=== PATIENT | female | born 2005 ===

== ENCOUNTER 2023-02-17 11:44 | Emergency (ER) | payer SELFPAY ==
[~2023-02-17] VITALS: Ht 157.4 cm; Wt 72.0 kg
[2023-02-17 14:13] LABS: BILIRUBIN,URINE NEGATIVE (NEGATIVE); CLARITY,URINE CLEAR; COLOR,URINE YELLOW; GLUCOSE, URINE (UA) NEGATIVE (NEGATIVE); KETONES,URINE NEGATIVE (NEGATIVE); NITRITE,URINE NEGATIVE (NEGATIVE); PROTEIN,URINE TRACE (NEGATIVE)
[2023-02-17 14:14] LABS: BACTERIA,URINE NEGATIVE /HPF; LEUKOCYTE ESTERASE ,URINE 1+ (NEGATIVE); RBC,URINE RARE /HPF; WBC,URINE RARE /HPF
[2023-02-17 14:19] LABS: BASOPHILS % (AUTO) 0 % (0-10); EOSINOPHILS # (AUTO) 0.2 10^3/uL (0.0-0.3); EOSINOPHILS % (AUTO) 2 % (0-10); HEMATOCRIT 38 % (35-52); HEMOGLOBIN 12.7 g/dL (11.5-16.0); LYMPHOCYTES # (AUTO) 3.7 10^3/uL (1.0-4.0); LYMPHOCYTES % (AUTO) 30 % (12-44); MEAN CORPUSCULAR HEMOGLOBIN 27 pg (25-34); MEAN CORPUSCULAR HGB CONC 33 g/dL (32-36); MEAN CORPUSCULAR VOLUME 81 fL (80-99); MEAN PLATELET VOLUME 8.9 fL (9.0-12.2); MONOCYTES % (AUTO) 8 % (0-12); NEUTROPHILS # (AUTO) 7.2 10^3/uL (1.8-7.8); NEUTROPHILS % (AUTO) 60 % (42-75); PLATELET COUNT 327 10^3/uL (130-400); WHITE BLOOD COUNT 12.1 10^3/uL (4.3-11.0)
--- NOTE | 2023-02-17 14:19 | ED GU-Female ---
General Chief Complaint: OB < 20 WEEKS Stated Complaint: 8 WEEKS | ABD PAIN | VAGINAL BLEEDING Nursing Triage Note: STARTED HAVING BLEEDING AND CRAMPING AROUND 1030 THIS AM. PATIENT IS 8 WEEKS . Source: patient, family Exam Limitations: language barrier (Divehi-speaking) (OLVIN IRBY APRN) History of Present Illness Date Seen by Provider: Feb 17, 2023 Time Seen by Provider: 13:44 Initial Comments 17-year-old G1, P0 female female presents to the ER with her fianc. Patient is Divehi-speaking, patient's fianc helped with interpretation. Patient thinks she is approximately 7 to 8 weeks , but reports the first day of last menstrual cycle was January 04 which would place her just over 6 weeks. She reports that this morning at 10:30 AM she had 1 episode of vaginal bleeding. States that it was more than spotting, but that she did not pass any clots. She reports intense mid lower abdominal cramping. Denies fevers. Does report nausea and vomiting due to . Denies dysuria. She has not yet seen OB, and has not yet had an ultrasound. (OLVIN IRBY APRN) Allergies and Home Medications Allergies Coded Allergies: No Known Drug Allergies (Unverified , 02/17/23) Patient Home Medication List Home Medication List Reviewed: Yes (OLVIN IRBY APRN) Review of Systems Review of Systems Constitutional: see HPI (OLVIN IRBY APRN) Past Mnjjhbg-Ohoyow-Vtruny Hx Patient Social History Tobacco Use?: No Substance use?: No Alcohol Use?: No (OLVIN IRBY APRN) Past Medical History Last Menstrual Period: Jan 04, 2023 (OLVIN IRBY APRN) Physical Exam Vital Signs Vital Signs - First Documented 02/17/23 12:25 Temp 37.0 Pulse 83 Resp 18 B/P (MAP) 116/72 (87) Pulse Ox 98 O2 Delivery Room Air (PRADIP VILLAGOMEZ MD) Vital Signs Capillary Refill : Less Than 3 Seconds (OLVIN IRBY APRN) Height, Weight, BMI Height: '" Weight: lbs. oz. kg; 29.00 BMI Method: General Appearance: WD/WN, no apparent distress Neck: supple, normal inspection Cardiovascular: regular rate, rhythm Respiratory: lungs clear, normal breath sounds, no respiratory distress, no accessory muscle use Gastrointestinal: normal bowel sounds, soft, tenderness (Mid lower) Pelvic: normal external exam, normal adnexa, discharge (White creamy discharge); No vaginal bleeding Extremities: normal range of motion, normal inspection Neurologic/Psychiatric: alert, normal mood/affect Skin: normal color, warm/dry (MAHAMED,OLVIN R FOOD SERVICE DIRECTOR) Progress/Results/Core Measures Suspected Sepsis SIRS Temperature: Pulse: 83 Respiratory Rate: 18 Laboratory Tests 02/17/23 14:12: White Blood Count 12.1H Blood Pressure 116 /72 Mean: 87 Laboratory Tests 02/17/23 14:12: Platelet Count 327 ([facility],OLVIN R FOOD SERVICE DIRECTOR) Results/Orders Lab Results Laboratory Tests Test 02/17/23 13:59 02/17/23 14:12 02/17/23 15:54 Range/Units Urine Color YELLOW Urine Clarity CLEAR Urine pH 7.0 5-9 Urine Specific [place] 1.025 H 1.016-1.022 Urine Protein TRACE H NEGATIVE Urine Glucose (UA) NEGATIVE NEGATIVE Urine Ketones NEGATIVE NEGATIVE Urine Nitrite NEGATIVE NEGATIVE Urine Bilirubin NEGATIVE NEGATIVE Urine Urobilinogen 0.2 < = 1.0 MG/DL Urine Leukocyte Esterase 1+ H NEGATIVE Urine RBC (Auto) NEGATIVE NEGATIVE Urine RBC RARE /HPF Urine WBC RARE /HPF Urine Squamous Epithelial Cells 5-10 /HPF Urine Crystals NONE /LPF Urine Bacteria NEGATIVE /HPF Urine Casts NONE /LPF Urine Mucus NEGATIVE /LPF Urine Culture Indicated NO White Blood Count 12.1 H 4.3-11.0 10^3/uL Red Blood Count 4.74 3.80-5.11 10^6/uL Hemoglobin 12.7 11.5-16.0 g/dL Hematocrit 38 35-52 % Mean Corpuscular Volume 81 80-99 fL Mean Corpuscular Hemoglobin 27 25-34 pg Mean Corpuscular Hemoglobin Concent 33 32-36 g/dL Red Cell Distribution Width 15.8 H 10.0-14.5 % Platelet Count 327 130-400 10^3/uL Mean Platelet Volume 8.9 L 9.0-12.2 fL Immature Granulocyte % (Auto) 0 % Neutrophils (%) (Auto) 60 42-75 % Lymphocytes (%) (Auto) 30 12-44 % Monocytes (%) (Auto) 8 0-12 % Eosinophils (%) (Auto) 2 0-10 % Basophils (%) (Auto) 0 0-10 % Neutrophils # (Auto) 7.2 1.8-7.8 10^3/uL Lymphocytes # (Auto) 3.7 1.0-4.0 10^3/uL Monocytes # (Auto) 1.0 0.0-1.0 10^3/uL Eosinophils # (Auto) 0.2 0.0-0.3 10^3/uL Basophils # (Auto) 0.0 0.0-0.1 10^3/uL Immature Granulocyte # (Auto) 0.0 0.0-0.1 10^3/uL Human Chorionic Gonadotropin, Quant 83458 H <5 MIU/ML (PRADIP VILLAGOMEZ MD) Micro Results Microbiology 02/17/23 Wet Prep - Final, Complete (PRADIP VILLAGOMEZ MD) Vital Signs/I&O Capillary Refill : Less Than 3 Seconds (OLVIN IRBY APRN) Blood Pressure Mean: 87 Progress Note : Progress Note Patient seen and evaluated, resting comfortably in bed, no acute distress. Based on exam and symptoms, differential diagnosis includes but is not limited to miscarriage, threatened miscarriage, subchorionic hemorrhage, UTI, pelvic infection. Work-up initiated including CBC, Rh blood type, UA, urine hCG, ultrasound. 1608 Labs and ultrasound reviewed. CBC shows mildly elevated WBC 12.1. hCG is 36,046. Urinalysis shows 1+ leukocytes, rare WBCs, rare RBCs, 5-10 squamous epithelial cells, negative bacteria. Will not treat for urinary tract infection. Ultrasound shows single live intrauterine fetus measuring 6 weeks 5 days with no detectable abnormality. Heart rate is 143. No subchorionic he morrhage noted. Wet prep negative for clue cells, trichomonas, and yeast. Blood type is B+. She does not require RhoGAM. Pelvic exam showed white discharge, no vaginal bleeding. Os is closed. Results discussed with patient and fianc. Patient instructed to follow-up with Dr. Herbert, [employer]. Patient is stable for discharge. Discharge instructions and return precautions pro vided. (OLVIN IRBY APRN) Departure Impression Primary Impression: Vaginal bleeding during Disposition: 01 HOME, SELF-CARE Condition: Stable Departure-Patient Inst. Decision time for Depature: 16:08 (OLVIN IRBY APRN) Referrals: JULISSA HERBERT DO Patient Instructions: Bleeding In Early Add. Discharge Instructions: Call Dr. Herbert's office today or tomorrow to schedule a follow-up appointment. Return if you have significant vaginal bleeding meaning that you are saturating a heavy menstrual pad every hour for several hours, or you develop dizziness or pass out, or any other new, concerning, or worsening symptoms. All discharge instructions reviewed with patient and/or family. Voiced understanding. Work/School Note: Work Release Form Date Seen in the Emergency Department: Feb 17, 2023 Return to Work: Feb 18, 2023 Restrictions: No Restrictions ATTENDING PHYSICIAN NOTE: I was physically present as attending physician in the emergency department during the care of this patient, but I was not directly involved in the decision making or delivery of care for this patient. (PRADIP VILLAGOMEZ MD) OLVIN IRBY APRN Feb 17, 2023 14:19 PRADIP VILLAGOMEZ MD Feb 18, 2023 11:57
--- NOTE | 2023-02-17 15:57 | Diagnostic Imaging Report ---
INDICATION: patient with cramping and vaginal bleeding. OB sonography performed in the routine fashion, including transabdominal and transvaginal views. A single live intrauterine fetus is seen measuring 6 weeks 5 days by gestational sac and crown-rump length. heart rate is 143 bpm. A normal-appearing yolk sac is seen. There is no subchorionic bleed. The right ovary measured 2.9 x 2.1 x 3.3 cm and appeared normal. Left ovary measured 3.6 x 2.5 x 3.4 cm and appeared normal with a small follicular cyst. There is no free fluid. IMPRESSION: Single live intrauterine fetus measuring 6 weeks 5 days as above, with no detectable abnormality. Recommend followup later in for further evaluation. There is no acute abnormality at this time. Dictated by: Dictated on workstation # [id number]
[2023-02-17 16:11] VITALS: BP 107/75
== END 2023-02-17 16:17 | disposition home or self-care (01) ==
LOC: ER 11:49
DX: O20.9 Hemorrhage in early pregnancy, unspecified (principal); Z3A.08 8 weeks gestation of pregnancy
CPT/HCPCS: 36415; 76801; 76817; 81000; 84702; 84703; 85025; 86900; 86901; 87210; 87491; 87591